=== PATIENT | female | born 1980 | race Caucasian/White ===

== ENCOUNTER 2018-08-22 16:40 | Emergency (ER) | payer OTHER ==
[~2018-08-22] VITALS: Ht 160 cm; Wt 120.2 kg
[~2018-08-22 16:40] MED LIST: ADVAIR 2501 DISK W/1 IH; DELTASONE20 MG PO; LEVSIN/SL0.125 MG SL; PROVENTIL3 ML/2.5 M IH; SINGULAIR10 MG PO; ZITHROMAX500 MG PO
== END 2018-08-22 22:27 | disposition home or self-care (01) ==
LOC: ER 16:40
DX: K29.70 Gastritis, unspecified, without bleeding (principal)